=== PATIENT | female | born 1945 | race Caucasian/White ===

== ENCOUNTER 2017-11-14 09:15 | Inpatient (IN) | payer OTHER ==
[~2017-11-14] VITALS: Ht 160 cm; Wt 65.2 kg
[~2017-11-14 09:15] MED LIST: ADVAIR 250-501 EACH IH; ALBUTEROL17 GM IH; ATIVAN0.5 MG PO; COMBIVENT INH14.7 GM IH; LEVO-T88 MCG PO; LIPITOR10 MG PO; OMEPRAZOLE40 M1 PO
[2017-11-14 10:04] LABS: HEMATOCRIT 40.3 % (36.0-46.0); HEMOGLOBIN 13.7 G/DL (11.9-15.5); MCH 30.6 PG (29.0-34.0); PLATELET COUNT 260 K/uL (156-360); RBC DIS.WIDTH-CV 13.2 % (11.8-14.6); RBC DIS.WIDTH-SD 43.5 % (39-53); RED BLOOD COUNT 4.48 M/uL (3.80-5.20); WHITE BLOOD COUNT 7.2 K/uL (4.1-10.2)
[2017-11-14 10:22] LABS: D-DIMER ELISA < 150.00 ng/mLDDU (<230)
[2017-11-14 10:56] LABS: CHLORIDE 104 mEq/L (99-109); POTASSIUM 4.3 mEq/L (3.7-5.4); SODIUM 142 mEq/L (136-147)
[2017-11-14 10:58] LABS: GLUCOSE 119 mg/dL (70-99)
[2017-11-14 11:02] LABS: CREATININE 0.9 mg/dL (0.6-1.3); GFR ESTIMATE (CALCULATED) > 59 mL/min/
[2017-11-14 11:03] LABS: UREA NITROGEN (BUN) 14 mg/dL (9-23)
[2017-11-14 11:07] LABS: TROP-I INTERPRETATION NEGATIVE; TROPONIN-I < 0.01 ng/mL (0.0-0.30)
[2017-11-14 12:22] LABS: CARBOXY HGB 1.7 % (0-5); COMMENTS - BLOOD GASES C+; CONTINUOUS POS AIRWAY PRESSURE 5 cm H2O; DEVICE MASK VENT; FI02 30 %; MODE SPONT; O2 SATURATION (CALCULATED) 99.2 % (95-99); PCO2 43 mm Hg (35-45); PO2 102 mm Hg (80-100); PRES. SUPPORT 10 CM/H2O; SITE LR; TOTAL RESP RATE 20 resp/min; pH 7.37 (7.35-7.45)
[2017-11-14 12:23] LABS: BASE EXCESS -0.6 mEq/L (-3 to +3); BICARBONATE 24.9 mEq/L (22-26)
[2017-11-14] MEDS ORDERED: PROAIR HFA8.5 GM IH (14:28)
[2017-11-14] MEDS ORDERED: COLACE100 MG PO (14:29)
[2017-11-14] MEDS ORDERED: SENNA-S TABLET1 EACH PO (14:29)
[2017-11-14] MEDS ORDERED: ONCE DAILY1 EACH PO (14:30)
[2017-11-14 18:14] VITALS: BP 135/77
[2017-11-14 19:00] VITALS: BP 112/59
[2017-11-14 22:30] VITALS: BP 106/53
[2017-11-15 04:00] VITALS: BP 111/58
[2017-11-15 06:10] LABS: CHLORIDE 102 MEQ/L (99-109); CREATININE 0.9 MG/DL (0.6-1.3); GFR ESTIMATE (CALCULATED) > 59 mL/min/; GLUCOSE 132 mg/dL (70-99); POTASSIUM 5.1 MEQ/L (3.7-5.4); SODIUM 141 MEQ/L (136-147); UREA NITROGEN (BUN) 17 mg/dL (9-23)
[2017-11-15 08:23] VITALS: BP 135/74
[2017-11-15 11:43] VITALS: BP 142/63
[2017-11-15 15:46] VITALS: BP 134/68
[2017-11-15 20:00] VITALS: BP 143/75
[2017-11-15 23:55] VITALS: BP 133/67
[2017-11-16 04:00] VITALS: BP 146/76
[2017-11-16 08:22] VITALS: BP 114/66
[2017-11-16 12:26] VITALS: BP 124/79
[2017-11-16 16:04] VITALS: BP 140/86
[2017-11-16 19:45] VITALS: BP 129/66
[2017-11-16 23:31] VITALS: BP 128/77
[2017-11-17 04:00] VITALS: BP 135/77
[2017-11-17 07:25] VITALS: BP 118/69
[2017-11-17 12:12] VITALS: BP 120/70
[2017-11-17] MEDS ORDERED: DUONEB 2.5-0.5 M3 ML AEROSOL (16:05)
[2017-11-17] MEDS ORDERED: SPIRIVA RESPIMAT4 GM IH (16:06)
[2017-11-17] MEDS ORDERED: FAMOTIDINE20 MG PO (16:07)
[2017-11-17] MEDS ORDERED: DULERA 100 MCG/13 GM IH (16:08)
[2017-11-17] MEDS ORDERED: TRAMADOL HCL50 MG PO (16:17)
[2017-11-17] MEDS ORDERED: PREDNISONE5 MG PO (16:17)
== END 2017-11-17 19:21 | DRG 190 ==
LOC: EME 09:15 → 4EAST 15:39 → EDOF 15:39 → CANRESERV 15:48 → ENRESERV 15:48 → 4EAST 17:25
PROVIDERS: Emergency Medicine; Family Medicine
PROC: 5A09357 Assistance with Respiratory Ventilation, Less than 24 Consecutive Hours, Continuous Positive Airway Pressure (ICD-10-PCS; principal; 2017-11-14)
DX: J44.1 Chronic obstructive pulmonary disease with (acute) exacerbation (principal); J96.01 Acute respiratory failure with hypoxia; E78.5 Hyperlipidemia, unspecified; E03.9 Hypothyroidism, unspecified; G89.29 Other chronic pain; M54.9 Dorsalgia, unspecified; Z87.891 Personal history of nicotine dependence; Z88.0 Allergy status to penicillin; Z88.2 Allergy status to sulfonamides
CPT/HCPCS: 36600; 71045; 80048; 82803; 83880; 84484; 85027; 85379; 93005; 94002; 94640; 94644; 94799; 99281; 99285; J1650; J2920; J2930; J3475; J7512